=== PATIENT | female | born 1960 | race Caucasian/White ===

== ENCOUNTER 2019-07-11 13:11 | Emergency (ER) | payer SELFPAY ==
[2019-07-11 13:12] VITALS: BP 140/74; PULSE 96; RESP 15; TEMP 36.7; O2SAT 94; BMI 50.4
--- NOTE | 2019-07-11 13:51 | ED.DCSUM_ITS ---
History of Present Illness Chief Complaint: Hypertension Narrative: Patient presenting for evaluation secondary to hypertension. Patient states that she has an underlying history of hypertension. She had a stroke about a year ago. She is on a very low-dose of lisinopril 2.5 mg/day. Patient states that over the course of the last week she has been dealing with elevated blood pressures. She states that her son is a learning operations specialist and he has been taking her blood pressures and they have been as high as the 190s. Patient states that on Sunday this week she had a mild amount of blurred vision and a mild headache but denies any visual field cuts speech difficulty numbness or weakness. This was a short amount of time and she has not had any sort of repeat episodes. Patient reports that she called the ask a nurse line at her primary care office and they recommended that she double her dose of lisinopril and come in for a follow-up appointment on Sunday. Patient's son was still concerned about her blood pressures so he recommended that she come to the emergency department. Past Medical History - Allergies and Home Meds Allergies/Adverse Reactions: Allergies No Known Allergies Allergy (Verified 07/11/19 13:12) Primary Care Physician: Apple Medina NP-C [Primary Care Provider] - Past Medical History: - - Hypertension, hyperlipidemia, past history of stroke Review of Systems General: Denies: Chills, Fever, Sweats Eyes: Reports: Blurred Vision - bilaterally - Resolved ENT: Denies: Rhinorrhea, Sore throat Cardiovascular: Denies: Chest pain, Palpitations Respiratory: Denies: Dyspnea, Cough, Dyspnea on exertion Gastrointestinal: Denies: Abdominal pain, Nausea, Vomiting, Diarrhea, Melena, Hematochezia Genitourinary: Denies: Dysuria, Hematuria, Frequency Musculoskeletal: Denies: Back pain, Extremity Pain Skin: Denies: Rash, Wounds Neurological: Reports: Headache Psych: Denies: Depression Endocrine: Denies: Polyuria Hematologic: Denies: Easy bruising Allergy: Denies: Swelling of the mouth Physical Exam Vital Signs/Narrative: Vital Signs Temp Pulse Resp BP Pulse Ox 07/11/19 13:12 98.0 F 96 15 140/74 H 94 Inital Vital Signs reviewed: Yes General: Well nourished, Well developed, No Acute Distress Head: Normocephalic, Atraumatic Eyes: Perrl, EOMI ENT: Moist mucous membranes, No rhinorrhea Neck: Supple, Nontender Cardiovascular: Regular rate, Regular rhythm, No murmurs Respiratory: No distress, CTA bilaterally, Chest nontender Abdomen: Soft, Nontender, Nondistended, Normal bowel sounds Back: Nontender, Normal Inspection Extremities: Nontender, No edema Skin: Normal color, No rash Neurological: Alert, Oriented x3, Cranial nerves II-XII grossly intact, Normal Strength, Normal Sensation, - - NIH is 0 Psychological: Normal affect, Normal Mood Diagnostic/Tx/Re-eval - Medical Decision Making Patient presented due to concern for hypertension. I took her blood pressure in the emergency department and it was actually 134/74. She had blurry vision earlier in the week with a headache, but no visual field cuts and no real significant evidence of TIA. I do not feel that further work-up for endorgan damage at this point is indicated. Patient was recommended to continue taking her lisinopril 2.5 mg twice a day. She has follow-up with her PCP on Sunday. She was recommended to keep that appointment. All questions were answered and patient was discharged. ED Disposition - Plan for ED Patient: Disposition: Home or Assisted Living Diagnosis: Hypertension Instructions: HYPERTENSION, Established Referrals: Apple Medina NP-C [Primary Care Provider] - Keep Deedee appointment
== END 2019-07-11 14:05 | disposition home or self-care (01) ==
PROVIDERS: Emergency Provider Emergency Medicine; Family Provider Nurse Practitioner Primary Care; PCP Nurse Practitioner Primary Care
DX: I10 Essential (primary) hypertension (principal); Z86.73 Personal history of transient ischemic attack (TIA), and cerebral infarction without residual deficits; Z79.899 Other long term (current) drug therapy
CPT/HCPCS: 99282

== ENCOUNTER 2020-03-10 16:02 | Emergency (ER) | payer OTHER, SELFPAY ==
[2020-03-10 16:03] VITALS: BP 139/82; PULSE 96; RESP 20; TEMP 36.8; O2SAT 96; BMI 46.7
[2020-03-10 16:44] VITALS: BP 139/82; PULSE 96; RESP 20; TEMP 36.8; O2SAT 96
--- NOTE | 2020-03-10 16:48 | ED.DCSUM_ITS ---
History of Present Illness Chief Complaint: General Illness Informant: Patient Narrative: 59-year-old female presents with concern for exposure to COVID?19. She states she has had a fever on and off for 8 days. Does have a mild cough. She does not complain of severe dyspnea. Denies chest pain. States she has been quarantined. She states she has a past medical history of diabetes, hypertension, hyperlipidemia, stroke. She denies history of DVT/PE. Past Medical History - Allergies and Home Meds Allergies/Adverse Reactions: Allergies No Known Allergies Allergy (Verified 03/10/20 16:05) Primary Care Physician: Apple Medina NP-C [Primary Care Provider] - Prior records reviewed: Yes Surgical History: noncontributory Lives: Spouse/ Significant Other Smoking Status: Never smoker Alcohol: None Drugs: None Review of Systems General: Reports: Chills, Fever, - - Loss of taste and smell Eyes: Denies: Visual changes - bilaterally, Diplopia ENT: Denies: Rhinorrhea, Sore throat Cardiovascular: Denies: Chest pain Respiratory: Reports: Cough Gastrointestinal: Reports: Nausea, Diarrhea. Denies: Abdominal pain Genitourinary: Denies: Dysuria Musculoskeletal: Reports: Myalgias Skin: Denies: Rash Neurological: Reports: Headache Psych: Denies: Depression, Anxiety Hematologic: Denies: Easy bruising, Easy bleeding Allergy: Denies: Uticaria Physical Exam Vital Signs/Narrative: Vital Signs Temp Pulse Resp BP Pulse Ox 03/10/20 16:44 98.2 F 96 20 H 139/82 H 96 03/10/20 16:03 98.2 F 96 20 H 139/82 H 96 Inital Vital Signs reviewed: Yes General: Well nourished, No Acute Distress Head: Normocephalic Eyes: Perrl, EOMI ENT: Moist mucous membranes, No rhinorrhea Cardiovascular: Regular rate, Regular rhythm Respiratory: No distress, CTA bilaterally Abdomen: Soft, Nontender Extremities: Nontender, No edema. Negative for: Calf Tenderness Skin: Normal color. Negative for: No rash, Cyanosis Neurological: Alert, Oriented x3 Psychological: Normal affect Diagnostic/Tx/Re-eval Clinical Impression(s) from Imaging Studies Chest X-Ray 03/10/20 17:51 IMPRESSION: No acute pulmonary findings. Electronically Signed: Chucho Kahn MD at 18:12 EDT Tel , Service support , Laboratory Data 03/10/20 03/10/20 03/10/20 17:17 17:20 17:20 WBC 5.1 RBC 4.05 L Hgb 12.2 Hct 38.9 MCV 96.0 MCH 30.1 MCHC 31.4 L RDW Std Deviation 48.8 H RDW Coeff of Trey 13.7 Plt Count 168 MPV 11.3 Immature Gran % (Auto) 0.200 Neut % (Auto) 67.6 Lymph % (Auto) 26.3 [place] % (Auto) 5.3 Eos % (Auto) 0.2 Baso % (Auto) 0.4 Absolute Neuts (auto) 3.5 Absolute Lymphs (auto) 1.35 Nucleated RBC % 0 Platelet Estimate ADEQUATE RBC Morphology N CHROM Anisocytosis 1+ Sodium 137 Potassium 4.8 Chloride 106 Carbon Dioxide 26.0 Anion Gap 5 BUN 21 H Creatinine 0.90 Estim Creat Clear Calc 57.05 Est GFR (MDRD) Af Amer 83 Est GFR (MDRD) Non-Af 69 BUN/Creatinine Ratio 23.4 H Glucose 92 Lactic Acid Calcium 8.9 Total Bilirubin 0.40 AST 41 H ALT 34 Alkaline Phosphatase 89 Troponin I < 0.015 Total Protein 8.2 Albumin 3.4 Globulin 4.8 H Albumin/Globulin Ratio 0.7 L Procalcitonin COVID-19 ([facility]) Positive 03/10/20 03/10/20 17:20 17:20 WBC RBC Hgb Hct MCV MCH MCHC RDW Std Deviation RDW Coeff of Trey Plt Count MPV Immature Gran % (Auto) Neut % (Auto) Lymph % (Auto) [place] % (Auto) Eos % (Auto) Baso % (Auto) Absolute Neuts (auto) Absolute Lymphs (auto) Nucleated RBC % Platelet Estimate RBC Morphology Anisocytosis Sodium Potassium Chloride Carbon Dioxide Anion Gap BUN Creatinine Estim Creat Clear Calc Est GFR (MDRD) Af Amer Est GFR (MDRD) Non-Af BUN/Creatinine Ratio Glucose Lactic Acid 1.2 Calcium Total Bilirubin AST ALT Alkaline Phosphatase Troponin I Total Protein Albumin Globulin Albumin/Globulin Ratio Procalcitonin < 0.01 COVID-19 ([facility]) - EKG Initial EKG Interpretation: Sinus Rhythm, No Acute Injury Pattern - Medical Decision Making Patient came in to be evaluated for fevers over the last 8 days and she is concerned that she might have COVID?19. She says she does not have significant shortness of breath. She is not having any chest pain. She states that she really feels the worse when she has the fevers. These do resolve with Tylenol. Her chest x-ray is normal. EKG is sinus rhythm without signs of ischemia. Blood work is all normal. She is not lymphopenic. Troponin is negative. Patient's vital signs are stable since she has been here. I did high school guidance counselor her that I would COVID swab her and however still quarantine. She was given strict return precautions. Impression: 1. Febrile illness 2. Possible exposure to COVID?19 ED Disposition - Plan for ED Patient: Disposition: Home or Assisted Living Diagnosis: Fever, Cough, COVID-19 Instructions: ED Fever Control (Adult) Prescriptions: Ondansetron [Zofran Odt] 4 mg PO Q8H PRN PRN #14 tab PRN Reason: Nausea Prescription Printed Referrals: Apple Medina, ANANDA-C [Primary Care Provider] -
--- NOTE | 2020-03-10 16:57 | EKG12_ITS ---
Test Reason : GENERAL ILLNESS Blood Pressure : / mmHG Vent. Rate : 093 BPM Atrial Rate : 093 BPM P-R Int : 124 ms QRS Dur : 084 ms QT Int : 342 ms P-R-T Axes : 031 046 010 degrees QTc Int : 425 ms Normal sinus rhythm Normal ECG Confirmed by SUKHJINDER HOPKINS ([id number]), map editor STACY BLACKWOOD ([id number]) on 03/15/2020 11:57:06 AM Referred By: COURTNEY Confirmed By:SUKHJINDER HOPKINS
[2020-03-10 17:07] VITALS: BP 139/82; PULSE 96; RESP 20; TEMP 36.8; O2SAT 96
--- NOTE | 2020-03-10 17:51 | RAD_ITS ---
STUDY: X-RAY CHEST REASON FOR EXAM: Female, 59 years old. NAUSEA WITH COUGH AND FEVER. FAMILY MEMBER DIAGNOSED WITH COVID TECHNIQUE: Single frontal view of the chest. COMPARISON: None. FINDINGS: The lungs are clear and expanded. There is no demonstrated pleural abnormality. Normal size heart. Normal mediastinum and janine. Normal visualized pulmonary arteries. Normal visualized aortic arch and descending thoracic aorta. Normal visualized thoracic spine. Left shoulder calcific tendinitis. There is no demonstrated abnormality of the visualized soft tissue structures of the upper abdomen. RAD/Chest 1 View (Portable) IMPRESSION: No acute pulmonary findings. Electronically Signed: Chucho Kahn MD at 18:12 EDT Tel , Service support ,
[2020-03-10 17:52] LABS: Absolute Lymphocyte Count 1.35 X10^3/uL (0.83-4.51); Absolute Neutrophil Count 3.5 X10^3/uL (2.0-7.7); Basophil# 0.02 X10^3/uL; Basophil% 0.4 % (0-1); Eosinophil# 0.01 X10^3/uL; Eosinophils% 0.2 % (0-5); Hematocrit 38.9 % (37-47); Hemoglobin 12.2 g/dL (12.0-15.0); Lymphocyte # 1.35 X10^3/ul (4.0); Lymphocyte % 26.3 % (19-41); Mean Corp Hgb Conc 31.4 g/dL (32-36); Mean Corpuscular Hgb 30.1 pg (27.0-32.0); Mean Platelet Vol. 11.3 fl (6.2-12.0); Monocyte# 0.27 X10^3/uL; Monocyte% 5.3 % (0-10); NRBC Flagged by Analyzer 0 % (0-5); Neutrophil # 3.48 X10^3/uL (2.7-7.7); Neutrophil % 67.6 % (47-70); POSITIVE MORPHOLOGY YES; Platelet Count 168 K/mm3 (150-450); RBC Distribution Width CV 13.7 % (11.6-14.6); RBC Distribution Width SD 48.8 fl (35.1-43.9); Red Blood Count 4.05 M/mm3 (4.2-5.4); White Blood Count 5.1 K/mm3 (4.4-11.0)
[2020-03-10 17:56] LABS: Differential Indicated SCAN CRITERIA MET
[2020-03-10 18:16] LABS: Lactic Acid 1.2 mmol/L (0.4-1.9)
[2020-03-10 18:23] LABS: ALB/GLOB Ratio 0.7 RATIO (0.9-2.4); AST(SGOT) 41 U/L (15-37); Alanine Aminotransfer ALT/SGPT 34 U/L (13-56); Albumin, Serum 3.4 g/dL (3.2-5.0); Alkaline Phosphatase 89 U/L (45-117); Anion Gap 5 (5-15); BUN 21 mg/dL (7-18); BUN/Creat Ratio 23.4 RATIO (10-20); Calcium,Total 8.9 mg/dL (8.5-10.1); Chloride 106 mmol/L (98-107); EST Glomerular Filtration Rate 69 mL/min (>60); Est Glom Filt Rate - Afr Amer 83 mL/min (>60); Estimated Creatinine Clearance 57.05 ml/min; Globulin 4.8 g/dL (2.2-4.2); Glucose 92 mg/dL (74-106); Potassium 4.8 mmol/L (3.5-5.1); Protein, Total 8.2 g/dL (6.4-8.2); Sodium Level 137 mmol/L (136-145)
[2020-03-10 18:25] VITALS: BP 104/93; PULSE 92; RESP 17; TEMP 36.6; O2SAT 95
[2020-03-10 18:36] LABS: Anisocytosis 1+; Platelet Estimate ADEQUATE (ADEQ); Red Cell Morphology N CHROM NORMAL (NORM C&C)
[2020-03-10 18:39] LABS: Procalcitonin < 0.01 ng/mL (0.00-0.09)
[2020-03-10 20:00] VITALS: BP 122/57; PULSE 83; RESP 20; O2SAT 92
[2020-03-10 20:01] VITALS: BP 122/57; PULSE 82; RESP 20; O2SAT 92
== END 2020-03-10 20:01 | disposition home or self-care (01) ==
PROVIDERS: Emergency Provider Student in an Organized Health Care Education/Training Program; PCP Nurse Practitioner Primary Care
DX: U07.1 COVID-19 (principal); R05 Cough; R50.9 Fever, unspecified; Z86.73 Personal history of transient ischemic attack (TIA), and cerebral infarction without residual deficits; E78.5 Hyperlipidemia, unspecified; I10 Essential (primary) hypertension; E11.9 Type 2 diabetes mellitus without complications
CPT/HCPCS: 36415; 71045; 80053; 83605; 84145; 84484; 85025; 87040; 87633; 87635; 93005; 99284; A4216; U0003

== ENCOUNTER 2023-10-22 18:30 | Outpatient (RCR) | payer SELFPAY ==
--- NOTE | 2023-08-17 12:53 | HP.PTEVAL ---
Patient's Visit Information Visit Information Visit Information: ALETA GARCIA is a 62 year old F referred to Physical Therapy by Dr. Agus Lindsey MD with a diagnosis of OSTEOARTHRITIS OF BOTH KNEES. Date of Evaluation: 08/14/23 Physical Therapist: Omar Fritz PT, Cert MDT, OCS Visit Plan Frequency: 2x /Week Duration: 6 Weeks Plan: S/P TKA 08/09/23 PT INTERVETIONS ROM KNEE ,FLEXABLITY ,PROGRESSIVE GAIT AND BALANCE TRAINING ,STRENGTHENING QUADS/HAMS/HIP ,FUNCTIONAL STRENGTHENING AND CP Subjective Subjective: This 62 y/o female presents to physical therapy with left TKA on 08/09/23 at [facility] by Dr Lindsey D/C 08/10/23 with FWW with WBAT with HEP. Patient had knee pain years and tried injection and gel injections. Patient had x-rays showed severe DJD Patient has 1 story with one steps. Patient has walk in shower and seat. Patient need assist with ADLS includes dressing. Patient c/o has paresthesia/tingling . Patient RTD 08/31/23. Patient has silverlon dressing .Patient has limitations wIth housework tasks and cleaning . Patient sleeping . Medication Percocet. Family and friends brings in feed. Patient condition affects QOL and function/housework tasks, Patient goals walk normal and return to function. Pain Left Knee: Pain Intensity (Out of 10): 6 Pain Intensity Range: 10 Objective Objective: POSTURE: mild forward posture ,hip/knee flexed GAIT: ambulates with fww with WBAT LLE mild forward posture hips /knees flexed slow ta SKIN: incision well approximate silverlon dressing GIRTH PATELLA: 45.1 GIRTH 6 SUPRAPATELLAR: 57.4 BALANCE: fair+ with fww AROM: supine knee flexion 5-85 degrees MMT: ( peak force) quads 5.1,hamstrings 9.1 STAIRS: one step at time with rail Balance/Special Test Scores TUG Test Time Seconds: 30.75 WOMAC Total Score: 63 WOMAC Percentatge: 34.3800 Goals Goal 1:: Patient to be I with HEP for TKA Goal Time Frame: 4-6 Weeks Goal 2:: Patient to normalize gait with/without cane Goal Time Frame: 4-6 Weeks Goal 3:: Patient to improve AROM supine knee flexion 0-115 supine flexion to improve stairs Goal Time Frame: 4-6 Weeks Goal 4:: Patient to improve peak force of quads/hams by 10-15# to improve gait Goal Time Frame: 4-6 Weeks Goal 5:: Patient to improve WOMAC score by 15-20 points to improve QOL Goal Time Frame: 4-6 Weeks Goal 6:: Patient to improve LFES score by points to improve QOL Goal Time Frame: 4-6 Weeks Rehabilitation Potential Physical Therapy Diagnosis: Patient underwent s/p Left TKA with decrease ROM ,strength ,impairs gait ,stairs thus benefit from skilled PT Rehabilitation Potential: Good Anticipated Interventions Patient/Client Instruction: Educate patient on: Condition and Plan of Care For the Purpose of:: To decrease pain, To increase ROM, To increase oxygenation perfusion, To improve ability to perform ADL's, To increase tolerance to activity/condition/position, To improve ability of physical actions for home/community/work/leisure, To improve gait and locomotor functions, To improve health of tissue, To decrease soft tissue restriction, To increase flexibility/ROM, To improve endurance, To improve balance and To improve tolerance to ADL's Therapeutic Exercise to Include: Strength training, Endurance training, Balance training, Flexibilty training, Gait and locomotor training, Passive ROM and Active ROM For the Purpose of:: To decrease pain, To increase ROM, To improve muscle performance and motor function, To improve ability to perform ADL's, To increase tolerance to activity/condition/position, To improve ability of physical actions for home/community/work/leisure, To improve gait and locomotor functions, To improve health of tissue, To decrease soft tissue restriction, To increase flexibility/ROM, To improve endurance, To improve balance and To improve tolerance to ADL's Text: Thank you for the opportunity to evaluate your patient. For Medicare and Medicare HMO plans, please review the plan of care and approve it. It will need to be FAXED BACK to us at [phone] for Medicare purposes. For Medicare only, by signing this I certify the plan of care. Please let me know if there are questions or concerns regarding this plan of care. Physician Signature: Date:
--- NOTE | 2023-09-26 15:35 | HP.PTREVAL ---
Re-Evaluation Intro: Dr. Agus Lindsey MD, It has been my pleasure to treat ALETA GARCIA over the last 13 visits for OSTEOARTHRITIS OF BOTH KNEES. Please see the progress note below for an update on the physical therapy plan of care! Subjective Subjective: Feeling good .. Still on pain medication Received order to Cont PT per MD Objective Objective/Function: Progressing well towards goals GAIT: ambulates with fww with WBAT LLE mild forward posture hips /knees flexed slow ta SKIN: incision well approximate GIRTH PATELLA: 42.1 GIRTH 6 SUPRAPATELLAR: 53.4 BALANCE: good - AROM: supine knee flexion 0-115 degrees MMT: ( peak force) quads 37.1,hamstrings 29.1 STAIRS: one step at time with rail and cane Plan Plan Plan: S/P TKA 08/09/23 PT INTERVENTIONS: ROM KNEE, FLEXIBILITY, PROGRESSIVE GAIT AND BALANCE TRAINING, STRENGTHENING QUADS/HAMS/HIP, FUNCTIONAL STRENGTHENING AND CP Balance/Gait/Functional tests Balance/Special Test Scores Lower Extremity Functional Score: 42 TUG Test Time Seconds: 30.75 Tug Test: >30sec.=impaired mobility WOMAC Total Score: 24 WOMAC Percentage: 75.0000 Goals Goals Goal 1:: Patient to be I with HEP for TKA Goal Time Frame: 4-6 Weeks Goal 2:: Patient to normalize gait with/without cane Goal Time Frame: 4-6 Weeks Goal Progress: Progressing Goal 3:: Patient to improve AROM supine knee flexion 0-120supine flexion to improve stairs Goal Time Frame: new goal Goal 4:: Patient to improve peak force of quads/hams by 10-15# to improve gait Goal Time Frame: 4-6 Weeks Goal Progress: new goal Goal 5:: Patient to improve WOMAC score by 15-20 points to improve QOL Goal Time Frame: 4-6 Weeks Goal Progress: new goals Goal 6:: Patient to improve LFES score 5 by points to improve QOL Goal Time Frame: 4-6 Weeks Goal Progress: goal Anticipated Interventions Anticipated Interventions Patient/Client Instruction: Educate patient on: Condition and Plan of Care For the Purpose of:: To decrease pain, To increase ROM, To increase oxygenation perfusion, To improve ability to perform ADL's, To increase tolerance to activity/condition/position, To improve ability of physical actions for home/community/work/leisure, To improve gait and locomotor functions, To improve health of tissue, To decrease soft tissue restriction, To increase flexibility/ROM, To improve endurance, To improve balance and To improve tolerance to ADL's Therapeutic Exercise to Include: Strength training, Endurance training, Balance training, Flexibilty training, Gait and locomotor training, Passive ROM and Active ROM For the Purpose of:: To decrease pain, To increase ROM, To improve muscle performance and motor function, To improve ability to perform ADL's, To increase tolerance to activity/condition/position, To improve ability of physical actions for home/community/work/leisure, To improve gait and locomotor functions, To improve health of tissue, To decrease soft tissue restriction, To increase flexibility/ROM, To improve endurance, To improve balance and To improve tolerance to ADL's Re-Evaluation Ending Re-evaluation ending: Please do not hesitate to contact me at [phone] by phone or if you have questions or concerns regarding this new plan of care! Sincerely, Omar Fritz, PT, Cert MDT, OCS
--- NOTE | 2023-12-05 08:55 | HP.PTDCNRP_ITS ---
Patient Information Patient Information: ALETA GARCIA was seen in my office for initial evaluation on 08/14/23. The following Plan of Care was established for this patient: POC Established Initial Frequency: 2x /Week Initial Duration: 6 Weeks Anticipated Interventions Patient/Client Instruction: Educate patient on: Condition and Plan of Care For the Purpose of:: To decrease pain, To increase ROM, To increase oxygenation perfusion, To improve ability to perform ADL's, To increase tolerance to activity/condition/position, To improve ability of physical actions for home /community/work/leisure, To improve gait and locomotor functions, To improve health of tissue, To decrease soft tissue restriction, To increase flexibility/ROM, To improve endurance, To improve balance and To improve tolerance to ADL's Therapeutic Exercise to Include: Strength training, Endurance training, Balance training, Flexibilty training, Gait and locomotor training, Passive ROM and Active ROM For the Purpose of:: To decrease pain, To increase ROM, To improve muscle performance and motor function, To improve ability to perform ADL's, To increase tolerance to activity/condition/position, To improve ability of physical actions for home/community/work/leisure, To improve gait and locomotor functions, To improve health of tissue, To decrease soft tissue restriction, To increase flexibility/ROM, To improve endurance, To improve balance and To improve tolerance to ADL's Last Seen Last Seen: This patient was last seen in our office . Pertinent comments regarding their Physical therapy will appear below: Patient was seen for PT for left TKA with ROM ,strength and gait. Patient doing well thus d/c At this point I will be discontinuing this patient from physical therapy. I would be happy to see this patient again in the future if found appropriate by the physician. Thank you! Omar Fritz, PT, Cert MDT, OCS Balance/Gait/Functional tests Balance/Special Test Scores Lower Extremity Functional Score: 42 TUG Test Time Seconds: 30.75 Tug Test: >30sec.=impaired mobility WOMAC Total Score: 24 WOMAC Percentage: 75.0000
== END 2023-10-22 19:00 | disposition home or self-care (01) ==
LOC: PT 18:30
PROVIDERS: PCP Nurse Practitioner Primary Care; Referring Provider Orthopaedic Surgery; Visit Provider Orthopaedic Surgery
DX: M17.0 Bilateral primary osteoarthritis of knee (principal)
CPT/HCPCS: 97110; 97162

== ENCOUNTER 2024-03-20 10:00 | Outpatient (RCR) | payer SELFPAY ==
--- NOTE | 2024-01-07 09:22 | HP.PTEVAL_ITS ---
Patient's Visit Information Visit Information Visit Information: ALETA GARCIA is a 63 year old F referred to Physical Therapy by NAMITA GALLO with a diagnosis of Right TKR 12/27/23. Date of Evaluation: 01/07/24 Physical Therapist: Yani Gasca DPT Visit Plan Frequency: 2x /Week Duration: 4 Weeks Plan: Right TKR 12/27/23- Focus on ROM and functional mobility HEP Given IE: heel slide seated/supine, step stretch, SLR, bolster extn supine, seated extn with chair Subjective Subjective: Right TKR December 27, [address] Escalera- she stayed overnight. Single story home with one step to enter. No problems getting in/out of the home. Fully I prior to surgery. Left TKR Aug 09, 2024. She did not use and AD prior to surgery. Worst pain since surgery 7-8/10 Agg: movement, therapy Best: 0/10 Eases: rest, elevation, ice. The pain is mostly in the knee but does radiate into the calf and into the thigh. It feels really tight. Her goal is not to have to have a manipulation. She does not have any N/T in the toes. She is sleeping in her recliner and it is disturbed. She is using an ice machine. She is doing her exercises at home. She did have home health 1x and then she is now coming here for therapy. Goal is to be able to go to [facility]- they have family there. PMHx: DM, CVA. Meds: metformin, simvistatin, 2 asprin, telepram, will bring full list next visit Objective Objective: Posture: forward head, rounded shoulders- can correct but does not maintain Gait: decreased ta- FWW- decreased step length- poor heel/toe pattern due to lack of ROM HR/TR: able with UE on FWW- does report tightness/discomfort in calf with TR SLS: weight shift with UE support on FWW Observation: incision is healing well- moderate redness around incision area. Heraclio with pen around per pt request and instructed them to call MD regarding redness- pt and agreed to follow up. No drainage or seepage- bruising down into the calf Girth: Patella: 44 cm ROM: Knee Flexion: 95 degrees measured in supine without OP Exten: 10 degrees from neutral Strength: Ankle: 5/5, Knee: Flexion: 13.8 no pain, Extn: 8.4 with discomfort. Hip: SLR with mild lag, Abd: 4/5, Add: 4+/5, Extn: 4/5 Flex: HS: severe, Gastroc: severe Stairs: asc/desc non recip with 2 HR Balance/Special Test Scores WOMAC Total Score: 56 WOMAC Percentatge: 41.6700 Goals Goal 1:: Patient will report participation in home exercise program activities a minimum of 5 days per week, as adjunct to skilled physical therapy intervention in preparation for independent home management upon discharge. Goal Time Frame: 4-6 Weeks Goal 2:: Patient will ambulate >150 feet with a normalized gait pattern and no AD Goal Time Frame: 4-6 Weeks Goal 3:: Patient will asc/desc 8 stairs recip with no HR Goal Time Frame: 4-6 Weeks Goal 4:: Patient will report 80% improvement Goal Time Frame: 4-6 Weeks Rehabilitation Potential Physical Therapy Diagnosis: Patient presents s/p right TKR- she has decreased ROM, LE and core strength/stabilization, flex, proprioception and muscular endurance leading to abnormal gait pattern and decreased participation with ADL's. Rehabilitation Potential: Good Anticipated Interventions Therapeutic Exercise to Include: Strength training, Endurance training, Balance training, Coordination, Body mechanics, Postural training, Flexibilty training, Gait and locomotor training, Passive ROM, Active ROM, Dynamic Lumbar Stabilization and Scapular Strength/Stabilization For the Purpose of:: To improve muscle performance and motor function TENS: Yes Cryotherapy (ice pack, ice massage): Yes Thermo therapy (hot pack): Yes Ultrasound (thermal/non thermal): No Text: Thank you for the opportunity to evaluate your patient. For Medicare and Medicare HMO plans, please review the plan of care and approve it. It will need to be FAXED BACK to us at [phone] for Medicare purposes. For Medicare only, by signing this I certify the plan of care. Please let me know if there are questions or concerns regarding this plan of care. Physician Signature: _Date:
--- NOTE | 2024-02-07 14:04 | HP.PTREVAL ---
Re-Evaluation Intro: KIM WALL, JADIELC, It has been my pleasure to treat ALETA GARCIA over the last 9 visits for Right TKR 12/27/23. Please see the progress note below for an update on the physical therapy plan of care! Subjective Subjective: ROM is lacking Objective Objective/Function: Ambulates with fww with decrease swing phase and slight decrease stance AAROM: 12-90 degrees supine flexion MMMT: ( peak force) quads 27.8 ,hamstrings 23.3 * FOCUS ON ROM* Plan Plan Plan: Right TKR 12/27/23- Focus on ROM and functional mobility HEP Given IE: heel slide seated/supine, step stretch, SLR, bolster extn supine, seated extn with chair Balance/Gait/Functional tests Balance/Special Test Scores Tug Test: <20 sec.=mostly independent WOMAC Total Score: 56 WOMAC Percentage: 41.6700 Goals Goals Goal 1:: Patient will report participation in home exercise program activities a minimum of 5 days per week, as adjunct to skilled physical therapy intervention in preparation for independent home management upon discharge. Goal Time Frame: 4-6 Weeks Goal 2:: Patient will ambulate >150 feet with a normalized gait pattern and no AD Goal Time Frame: 4-6 Weeks Goal 3:: Patient will asc/desc 8 stairs recip with no HR Goal Time Frame: 4-6 Weeks Goal 4:: Patient will report 80% improvement Goal Time Frame: 4-6 Weeks Anticipated Interventions Anticipated Interventions Therapeutic Exercise to Include: Strength training, Endurance training, Balance training, Coordination, Body mechanics, Postural training, Flexibilty training, Gait and locomotor training, Passive ROM, Active ROM, Dynamic Lumbar Stabilization and Scapular Strength/Stabilization For the Purpose of:: To improve muscle performance and motor function TENS: Yes Cryotherapy (ice pack, ice massage): Yes Thermo therapy (hot pack): Yes Ultrasound (thermal/non thermal): No Re-Evaluation Ending Re-evaluation ending: Please do not hesitate to contact me at [phone] by phone or if you have questions or concerns regarding this new plan of care! Sincerely, Omar Fritz, PT, Cert MDT, OCS
--- NOTE | 2024-03-27 15:15 | HP.PT.NRP ---
Patient Information Patient Information: ALETA GARCIA was seen in my office for initial evaluation on 01/07/24. The following Plan of Care was established for this patient: POC Established Initial Frequency: 2x /Week Initial Duration: 4 Weeks Anticipated Interventions Therapeutic Exercise to Include: Strength training, Endurance training, Balance training, Coordination, Body mechanics, Postural training, Flexibilty training, Gait and locomotor training, Passive ROM, Active ROM, Dynamic Lumbar Stabilization and Scapular Strength/Stabilization For the Purpose of:: To improve muscle performance and motor function TENS: Yes Cryotherapy (ice pack, ice massage): Yes Thermo therapy (hot pack): Yes Ultrasound (thermal/non thermal): No Last Seen Last Seen: This patient was last seen in our office . Pertinent comments regarding their Physical therapy will appear below: Patient reports that she doing well and feels that she is ready for discharge. PT feels this is appropriate and to continue HEP. At this point I will be discontinuing this patient from physical therapy. I would be happy to see this patient again in the future if found appropriate by the physician. Thank you! Yani Gasca DPT Balance/Gait/Functional tests Balance/Special Test Scores Tug Test: <20 sec.=mostly independent WOMAC Total Score: 31 WOMAC Percentage: 67.7100
== END 2024-03-20 19:00 | disposition home or self-care (01) ==
LOC: PT 10:00
PROVIDERS: PCP Nurse Practitioner Primary Care; Referring Provider Nurse Practitioner Family; Visit Provider Nurse Practitioner Family
DX: M17.0 Bilateral primary osteoarthritis of knee (principal); Z96.652 Presence of left artificial knee joint
CPT/HCPCS: 97110; 97140; 97162; 97530

== ENCOUNTER 2025-05-27 00:41 | Emergency (ER) | payer SELFPAY ==
[2025-05-27] VITALS (12 sets, daily range): BP systolic 78–163; BP diastolic 22–127; PULSE 71–113; RESP 12–29; TEMP 36.2; O2SAT 90–100; BMI 42.5
--- NOTE | 2025-05-27 00:42 | CT_ITS ---
PROCEDURE: STROKE BRAIN/HEAD WITHOUT CONT 05/27/2025 REASON FOR EXAM: NEURO DEFICIT, ACUTE, STROKE SUSPECTED TECHNIQUE: Procedure Code: CTBR.ST Modality: CT Procedure: STROKE BRAIN/HEAD WITHOUT CONT Coronal and Sagittal reconstruction series were provided. One or more dose reduction techniques were used (e.g., Automated exposure control, adjustment of the mA and/or kV according to patient size, use of iterative reconstruction technique. RADIATION DOSE SUMMARY: CTDI Vol 44.99 mGy DLP :846.73 mGycm COMPARISON: none FINDINGS: Right odjdit-gnmov-trwpglnx and smaller right frontal cortical and subcortical hemorrhagic densities are noted with the largest component measures 7.5 x 4.2 cm in diameter with possible smearing of the related sulci by subarachnoid hemorrhage. Surrounding edema and mass effect evident b compression and left side shift of the right lateral ventricle and left side midline shift. The visualized left cerebral parenchyma shows normal appearance. No focal parenchymal abnormalities are demonstrated. Randhawa-white matter differentiation is maintained. Bilateral basal ganglia calcifications (physiological). Normal CT appearance of the posterior fossa structures. Smooth hyperdensity along the falx and tentorium possibly attributed to patient hydration status No definite calvarial fractures. The osseous structures in the skull base are unremarkable. Paranasal sinuses are unremarkable. CT/STROKE Brain/Head without Cont IMPRESSION: Right cerebral parenchymal hematomas inducing mass effect as detailed with poss ible related subarachnoid hemorrhage. Advise clinical correlation. Reading Location: [place] [id number]
[2025-05-27 01:01] LABS: Hematocrit 42.6 % (37-47); Hemoglobin 13.9 g/dL (12.0-15.0); Immature Granulocytes Count 0.010 X10^3/uL (0.0-0.0); Mean Corp Hgb Conc 32.6 g/dL (32-36); Mean Corpuscular Volume 93.6 fL (81-99); Mean Platelet Vol. 10.7 fl (6.2-12.0); NRBC Flagged by Analyzer 0 % (0-5); Platelet Count 184 K/mm3 (150-450); RBC Distribution Width CV 13.0 % (11.6-14.6); RBC Distribution Width SD 44.2 fl (35.1-43.9); Red Blood Count 4.55 M/mm3 (4.2-5.4); White Blood Count 6.2 K/mm3 (4.4-11.0)
[2025-05-27 01:05] LABS: Prothrombin Time (Protime)PT. 12.6 SECONDS (11.7-14.9)
[2025-05-27 01:06] LABS: Partial Thromboplast Time 26.4 Seconds (24.1-36.2)
[2025-05-27 01:15] LABS: Anion Gap 14 (5-15); BUN 19 mg/dL (4-19); BUN/Creat Ratio 23.9 RATIO (10-20); Calcium,Total 9.7 mg/dL (7.6-11.0); Carbon Dioxide 23.9 mmol/L (21.0-32.0); Chloride 100 mmol/L (98-108); Estimated Creatinine Clearance 99.17 ml/min (50-250); Glucose 161 mg/dL (70-99); Potassium 3.7 mmol/L (3.3-5.1)
--- NOTE | 2025-05-27 01:16 | ED.RN ---
DR LOMBARDO SPEAKING WITH FAMILY IT WAITING ROOM. AT THIS TIME PATIENT DROPPED HER PRESSURE ITNO THE 70'S SYSTOLIC AND LOOKS TO BE POSTURING IN LEGS AND ARMS. DR LOMBARDO CALLED BACK TO BEDSIDE
[2025-05-27] MEDS: levETIRAcetam IV 1,000 MG/100 ML BAG 400 MG IV (01:22)
[2025-05-27] MEDS: TRANEXAMIC ACID 1,000 MG in 0.9% Normal Saline (100mL Bag) 100 ML 440 MG IV (01:31)
[2025-05-27] MEDS: fentaNYL drip 100 ML 2.5 MCG CONT INF (01:37)
--- NOTE | 2025-05-27 01:39 | EDS_ITS ---
HPI History of Present Illness Chief Complaint: Stroke Alert Informant: family and EMS Narrative Narrative: Patient is a 64-year-old female with past medical history of hypertension hyperlipidemia and igi-zloqwax-dbjxzomjt diabetes. According to family they came home this evening around 11:30 PM. When they walked in the patient was awake sitting in her chair. She told family she had a mild headache and did not feel well. Reported she also stated she felt lightheaded or dizzy. Family states that roughly 10 minutes later they noticed she began slurring her speech and having left-sided extremity weakness. Secondary to this EMS was called. EMS reports that when they arrived the patient was awake and alert but would not look to the left and had left-sided extremity weakness. They checked her blood sugar and it was reportedly normal at approximately 160. Therefore with focal neurologic findings and normal blood sugar they called the ER and activated a stroke alert. EMS reports that during the transport the patient's mental status has continued to worsen and she has now developed bouts of nausea and vomiting Family reports she is not on a blood thinner other than a baby aspirin once a day PFSH PFS Medical History unable to obtain Home Medications ?Medication ?Instructions ?Recorded ?Last Taken ?Type citalopram 40 mg tablet 40 mg PO DAILY 03/10/20 Unkn own History clopidogrel 75 mg tablet 75 mg PO DAILY 03/10/20 Unkn own History diclofenac sodium 50 mg 50 mg PO BIDCM 03/10/20 Unkn own History tablet,delayed release lisinopril 2.5 mg tablet 2.5 mg PO DAILY 03/10/20 Unk nown History metformin 1,000 mg tablet 1,000 mg PO BID 03/10/20 Unk nown History ondansetron 4 mg disintegrating 4 mg PO Q8H PRN PRN Na usea #14 tabs 03/10/20 Unknown Rx tablet pioglitazone 45 mg tablet 45 mg PO DAILY 03/10/20 Unkn own History simvastatin 40 mg tablet 40 mg PO DAILY 03/10/20 Unkn own History Allergy/AdvReac Type Severity Reaction Status Date / Time No Known Allergies Allergy Verified 03/10/20 16:05 Social History Smoking Status: Never smoker ROS ROS ED ROS Narrative Unable to obtain review of systems based on altered mental status Review of Systems ROS Unobtainable: due to mental status EXAM Physical Exam Const Vital Signs: 05/27/25 00:51 05/27/25 00:56 05/27/25 01:00 Temperature 97.1 F L Temperature Source Temporal Pulse Rate 71 93 97 Respiratory Rate 29 H 18 16 Blood Pressure 163/73 H 163/73 H 153/127 H Blood Pressure Mean 103 103 135 Pulse Ox 95 95 98 Oxygen Delivery Method Room Air Room Air Fraction of Inspired Oxygen (FIO2) 05/27/25 01:19 05/27/25 01:28 05/27/25 01:30 Temperature Temperature Source Pulse Rate 108 H 86 85 Respiratory Rate 17 19 H 21 H Blood Pressure 78/58 L 111/69 98/64 Blood Pressure Mean 64 83 75 Pulse Ox 96 100 100 Oxygen Delivery Method Ambu-Bag Mechanical Ventilator Mechanical Ventilator Fraction of Inspired Oxygen (FIO2) 05/27/25 01:44 05/27/25 01:48 05/27/25 01:59 Temperature Temperature Source Pulse Rate 102 H 73 105 H Respiratory Rate 24 H 21 H Blood Pressure 135/38 H Blood Pressure Mean 70 Pulse Ox 100 100 96 Oxygen Delivery Method Mechanical Ventilator Fraction of Inspired Oxygen (FIO2) 80 100 60 05/27/25 02:00 05/27/25 02:04 Temperature Temperature Source Pulse Rate 113 H 101 H Respiratory Rate 26 H 25 H Blood Pressure 87/22 L 87/22 L Blood Pressure Mean 43 43 Pulse Ox 94 90 Oxygen Delivery Method Mechanical Ventilator Mechanical Ventilator Fraction of Inspired Oxygen (FIO2) 100 Positive well nourished, well developed and obese General Appearance ED: well developed; Negative for pallor Nutritional Appearance: obese HEENT HEENT Narrative: Normocephalic atraumatic No signs of depressed or basilar skull fracture No tongue or cheek biting noted to suggest seizure activity Eyes Eyes Narrative: Right pupil is dilated and unresponsive to light. Left pupil is normal approximately 4 mm in size. Neck supple Chest Wall palpation of chest normal Chest Narrative: No bony deformity or crepitance Resp Resp Narrative: Breath sounds are diminished throughout. Patient is tachypneic. However no n nita flaring or retractions. There are faint rhonchi noted in bilateral bases slightly greater on the left. Cardio regular rate and regular rhythm Rate: other Other Details: Heart is regular rate and rhythm Radial and carotid pulses are equal and symmetric GI non-distended and no masses GI Narrative: Abdomen is soft and nondistended with normal active bowel sounds No fluid wave or pulsatile mass Auscultation: normoactive bowel sounds Palpation: soft Extremity normal to inspection Extremity Narrative: No sign of long bone injury such as bony deformity or joint effusion Neuro Neuro Narrative: Patient initially arrived to the ER with a suppressed mental status but would awaken to voice and could tell us her birthday however after returning from CT scan she is now completely altered with minimal gag reflex After returning from CT scan patient now has a GCS of 6. She will localize pain and receives a value of a 4. However eyes are closed and remain closed and there is no speech present giving her a 1 for each component. Upon arrival to the ER she received a value of a 1 for level of consciousness but after return from CT scan that value has increased to a value of 3 as she is not responding to repeated stimuli. She receives a score of 2 for level of consciousness questions as she is unresponsive at this time She receives a value of 2 for level of consciousness commands as she will not perform them She receives a value of a 2 as there appears to be forced gaze deviation to the right Unable to assess visual agee No facial palsy noted Patient received a value of a 3 for motor function in the left arm Patient received a value of a 2 for motor function of the left leg Cannot assess limb ataxia Patient appears to sense pain in all 4 extremities therefore she received a 0 Patient received a value of 3 for best language as she is unresponsive Unable to assess dysarthria or inattention Total stroke scale score of 18 Psych Psych Narrative: Patient is unresponsive Skin no rashes or lesions noted General Skin Exam: Negative for jaundice or pallor MDM MDM MDM Narrative Medical decision making narrative: Patient arrived to the ER slightly hypertensive and tachypneic but afebrile and satting in the high 90s on room air. With report of left-sided neglect and weakness and now bouts of nausea and vomiting as well as report of headache there is high concern for hemorrhagic stroke. The stroke alert was activated by EMS prior to arrival. The patient was evaluated as soon as she arrived in the ER and was taken directly to CT scan. CT scan confirmed a large hemorrhagic stroke with left shift. The patient's mental status was becoming more and more depressed quickly and she was not protecting her airway. Therefore the decision was made to intubate the patient for airway stabilization as documented below. The patient is not on true anticoagulation such as Coumadin Eliquis or Xarelto so there is no need for Kcentra fresh frozen plasma or reversal agent. As she has a hemorrhagic stroke she is not a candidate for TNK. The case was discussed with Dr. Aleman at [facility] neurology. She agrees that based on the large hemorrhagic stroke and worsening symptoms that these interventions are necessary and that she should be sent from our ER to the [facility] ER for potential intervention. Secondary to this [facility] was contacted and they will fly the patient from [facility] to [facility]. The patient then began to have a posturing status indicating worsening intracranial pressure. Secondary to this the patient was given 1 g of TXA as well as a 20 mcg bolus of DDAVP as she is on aspirin. Mannitol was given as well to try to reduce intracranial pressure. 1 g of Keppra was provided to prevent seizure activity. The patient's labs revealed no clinically significant findings such as leukocytosis or left shift there is no thrombocytopenia or elevation to her bleeding times. Family reported that she did not feel well and complained of a headache and reported her blood pressure has been higher than normal over the last few days which would indicate she had a spontaneous rupture of a blood vessel and there also no report or signs of trauma to suggest injury as the cause of her hemorrhagic stroke. At this time the patient is continuing to show deterioration as she is now developing ectopy and blood pressure is beginning to drop. However there is no further intervention that can be provided at this hospital and I do therefore still recommend transfer to [facility] for potential neurosurgical intervention The patient was intubated using a glide scope. The patient was given sedation and paralyzation using 20 mg of etomidate and 100 mg of succinylcholine. Following this the GlideScope was inserted into the oral cavity and the vocal cords were visualized. A 7.5 ET tube was passed with 1 attempt. Confirmation was by color change capnography as well as bilateral breath sound. The patient tolerated procedure well without complication History & Record Review Discussion w/independent historian: EMS personnel and Family Lab Data Attestation: I reviewed the patient's lab results. Labs: Laboratory Results - last 24 hr 05/27/25 00:25 WBC 6.2 RBC 4.55 Hgb 13.9 Hct 42.6 MCV 93.6 MCH 30.5 MCHC 32.6 RDW Std Deviation 44.2 H RDW Coeff of Trey 13.0 Plt Count 184 MPV 10.7 Immature Gran % (Auto) 0.200 Neut % (Auto) 38.6 L Lymph % (Auto) 51.4 H Motley % (Auto) 7.2 Eos % (Auto) 2.1 Baso % (Auto) 0.5 Absolute Neuts (auto) 2.4 Absolute Lymphs (auto) 3.21 Nucleated RBC % 0 PT 12.6 INR 0.9 APTT 26.4 Sodium 138 Potassium 3.7 Chloride 100 Carbon Dioxide 23.9 Anion Gap 14 BUN 19 Creatinine 0.80 Estim Creat Clear Calc 99.17 Est GFR (MDRD) Non-Af 84 BUN/Creatinine Ratio 23.9 H Glucose 161 H Calcium 9.7 ABG Data ABG results: ABG 05/27/25 01:36 Specimen Type ART Sample Site R Radial pH 7.33 L Bicarbonate Actual 25.7 Total CO2 27 Base Excess 0 O2 Saturation 100 H O2 % 100.0 ABG pCO2 49.1 H ABG pO2 395 H* Darius Test Positive Respiration Rate 12 O2 Delivery Device Adult Vent Vent Mode AC Tidal Volume 450.0 POC PEEP 5 Crit Call To/Read Back Yes Blood Gas Notified Whom Dr. Faith Blood Gas Notified Time 01:38:37 Radiography Diagnostic Testing: Clinical Impression(s) from Imaging Studies Brain CT 05/27/25 00:42 IMPRESSION: Right cerebral parenchymal hematomas inducing mass effect as detailed with possible related subarachnoid hemorrhage. Advise clinical correlation. Reading Location: [place] [id number] 1 view chest x-ray as interpreted by the emergency medicine physician reveals ET tube to be within the trachea just above the allan and OG to be in place with in the esophagus and stomach. No infiltrate or pneumothorax noted Management Discussion w/another healthcare provider: Senior Accounting Specialist and Radiologist Critical Care Time Critical Care Time: Yes Critical care time (excluding procedures): Discussing w/Patient &/or Family/[employer] Cutter Hand, Discussing w/Consultants, Arranging Admission or Transfer, Performing Direct Patient Care at Bedside and - (Critical care time of 33 minutes) Discharge Plan Triage Chief Complaint: Stroke Alert ED Provider: Dominic Faith Dx/Rx/DC Orders Clinical Impression: Hemorrhagic stroke, Hypertension, Hyperlipidemia, Non-insulin dependent diabetes mellitus Prescriptions: No Action citalopram 40 mg tablet 40 mg PO DAILY Patient Comments: TAKE 1 TABLET BY MOUTH ONCE DAILY pioglitazone 45 MG tablet 45 mg PO DAILY clopidogrel 75 MG tablet 75 mg PO DAILY simvastatin 40 MG tablet 40 mg PO DAILY metformin 1,000 MG tablet 1,000 mg PO BID diclofenac sodium 50 MG tablet 50 mg PO BIDCM lisinopril 2.5 MG tablet 2.5 mg PO DAILY ondansetron 4 MG tablet 4 mg PO Q8H PRN PRN (Reason: Nausea) Qty: 14 0RF Primary Care Provider: Apple Medina NP Referrals: Apple Medina NP, [facility] [Primary Care Provider, Family Practice] Print Language: Samoan Disposition Disposition: Acute Care Hospital Discharge Location: [facility]
--- NOTE | 2025-05-27 01:40 | RAD_ITS ---
PROCEDURE: CHEST 1 VIEW 05/27/2025 REASON FOR EXAM: NEURO DEFICIT, ACUTE, STROKE SUSPECTED TECHNIQUE: Frontal view of the chest. COMPARISON: 03/10/2020. FINDINGS: Endotracheal tube is just above the level of the allan. It needs to be retrieved 2 cm for better positioning. Enteric feeding tube is in good position with its tip at the level of the gastric body. Increased mild central pulmonary venous congestion. Increased bilateral basilar atelectatic pulmonary changes. There is no demonstrated pleural abnormality. Enlarged cardiac silhouette. Normal mediastinum and janine. Normal visualized pulmonary arteries. Atheromatous plaques of the visualized aortic arch and descending thoracic aorta. Diffuse spondylosis of the visualized thoracic spine. Normal visualized ribs, clavicles. Degenerative joint disease. There is no demonstrated abnormality of the visualized soft tissue structures of the upper abdomen. RAD/Chest 1 View IMPRESSION: Endotracheal tube is just above the level of the allan. It needs to be retriev ed 2 cm for better positioning. Enteric feeding tube is in good position with its tip at the level of the gastr ic body. Increased mild central pulmonary venous congestion. Increased bilateral basilar atelectatic pulmonary changes. Reading Location: [facility]
[2025-05-27 01:41] LABS: Allen Test Positive; Base Excess 0 mmol/L (-2 to +2); FI02 100.0; PEEP 5; PO2 395 mmHG (75-100); RR 12; SITE R Radial; SO2 100 % (95-99); Time Given 01:38:37
[2025-05-27] MEDS: MANNITOL IV (01:42)
[2025-05-27] MEDS: PREMIXED IV (01:42)
[2025-05-27] MEDS: Midazolam 50 MG in 0.9% Normal Saline (100mL Bag) 90 ML CONT INF (01:50)
[2025-05-27] MEDS: 0.9% Normal Saline (500mL Bag) 500 ML 999 ML IV (02:04)
--- NOTE | 2025-05-27 02:09 | ED.RN ---
unable to fully complete NIHs after patient went unresponsive and was intubated.
--- NOTE | 2025-05-27 02:14 | ED.RN ---
[facility] at bedside, report given. Care assumed by their team.
== END 2025-05-27 02:30 | disposition short-term general hospital (02) ==
PROVIDERS: Emergency Provider Emergency Medicine; PCP Nurse Practitioner Primary Care; Visit Provider Emergency Medicine
DX: I63.9 Cerebral infarction, unspecified (principal); E11.9 Type 2 diabetes mellitus without complications; I10 Essential (primary) hypertension; E78.5 Hyperlipidemia, unspecified; Z79.82 Long term (current) use of aspirin; Z79.84 Long term (current) use of oral hypoglycemic drugs; Z79.899 Other long term (current) drug therapy
CPT/HCPCS: 31500; 36600; 51702; 70450; 71045; 80048; 82803; 82962; 85025; 85610; 85730; 93005; 94002; 96365; 96368; 96375; 99252; 99285; A4216; G0463; J2405; J2597